=== PATIENT | male | born 1945 | race Caucasian/White ===

== ENCOUNTER 2022-06-03 07:04 | Day surgery (SDC) | payer OTHER ==
[~2022-06-03] VITALS: Ht 177.8 cm; Wt 104.3 kg
[2022-06-03] VITALS (8 sets, daily range): BP systolic 120–148; BP diastolic 60–76
[2022-06-03] MEDS ORDERED: normal saline 1,000 ML IV SCH (07:30)
[2022-06-03] MEDS ORDERED: LORazepam 0.5 MG tablet PO PRN (07:30)
[2022-06-03] MEDS ORDERED: diphenhydrAMINE 25mg capsule PO PRN (07:30)
[2022-06-03] MEDS ORDERED: ATOR40TA71 PO (07:34)
[2022-06-03] MEDS ORDERED: METF-438 PO (07:34)
[2022-06-03] MEDS ORDERED: LISI2.5T14 PO (07:34)
[2022-06-03] MEDS ORDERED: ATEN50TA2 PO (07:34)
[2022-06-03] MEDS ORDERED: LEVO50TA8 PO (07:34)
[2022-06-03] MEDS ORDERED: FLO0.4C PO (07:35)
[2022-06-03] MEDS ORDERED: CLOP75TA34 PO (07:38)
[2022-06-03] MEDS ORDERED: nitroGLYCERIN-Tridil 50MG/D5W 250 ML IV ONE (09:19)
[2022-06-03] MEDS ORDERED: verapamil 2.5 mg/ml inj IV ONE (09:20)
[2022-06-03] MEDS ORDERED: midazolam 1 mg/ML 2ml injection ONE (09:20)
[2022-06-03] MEDS ORDERED: heparin 1,000unit/ml 10ml vial 10 ML ONE (09:20)
[2022-06-03] MEDS ORDERED: LIDOcaine 1% (10mg/ml) 2ml vial ONE (09:20)
[2022-06-03] MEDS ORDERED: fentaNYL/PF 50MCG/1 ML 2ML syringe ONE (09:21)
[2022-06-03] MEDS ORDERED: iohexol 350MG/ML 100ml bottle IV ONE (09:21)
[2022-06-03] MEDS ORDERED: HYDROcodone/acetaminophen 10/325mg tab PO PRN (10:45)
[2022-06-03] MEDS ORDERED: HYDROcodone/acetaminophen 5mg/325mg tablet PO PRN (10:45)
== END 2022-06-03 12:25 | disposition home or self-care (01) ==
LOC: SSTAY O 07:04
PROVIDERS: ATTEND Student in an Organized Health Care Education/Training Program
DX: R94.39 Abnormal result of other cardiovascular function study (principal); R07.89 Other chest pain; E78.5 Hyperlipidemia, unspecified; E11.9 Type 2 diabetes mellitus without complications; I10 Essential (primary) hypertension; I25.10 Atherosclerotic heart disease of native coronary artery without angina pectoris; I25.2 Old myocardial infarction; Z79.899 Other long term (current) drug therapy; Z79.84 Long term (current) use of oral hypoglycemic drugs; Z85.828 Personal history of other malignant neoplasm of skin
CPT/HCPCS: 82948; 93005; 93458; 99152; A6258; C1769; C1894; J1644; J2250; J3010; J3490; J7030; Q0163; Q9967; A6402

== ENCOUNTER 2025-01-02 06:57 | Day surgery (SDC) | payer MEDICARE, OTHER ==
[~2025-01-02] VITALS: Ht 177.8 cm; Wt 95.3 kg
[~2025-01-02 06:57] MED LIST: ATOR40TA71 PO; CLOP75TA34 PO; EMPA10TA PO; GABA-530 PO; INDLA60C PO; LEVO50TA8 PO; LISI2.5T14 PO; METF-438 PO; SEMA2PEN SQ; TAMS-55 PO; ringers solution, lacted 1,000 ML IV SCH
[2025-01-02 07:12] VITALS: BP 146/75; PULSE 78; RESP 15; RESP 16; TEMP 97.2; O2SAT 96
[2025-01-02] MEDS ORDERED: midazolam 1 mg/ML 2ml injection ONE (10:02)
[2025-01-02] MEDS ORDERED: fentaNYL/PF 50MCG/1 ML 2ML syringe ONE (10:02)
[2025-01-02] MEDS ORDERED: dexmedetomidine 200mcg/2ml inj. IV ONE (10:13)
[2025-01-02] MEDS ORDERED: propofol inj 20 ML IV ONE (10:33)
[2025-01-02 11:01] VITALS: BP 98/60; PULSE 69; RESP 16; O2SAT 99
[2025-01-02 11:10] VITALS: BP 96/60; PULSE 62; RESP 13; O2SAT 97
[2025-01-02 11:20] VITALS: BP 101/62; PULSE 66; RESP 18; O2SAT 98
[2025-01-02 11:30] VITALS: BP 115/65; PULSE 58; RESP 18; O2SAT 97
[2025-01-02 11:41] VITALS: BP 105/65; PULSE 62; RESP 13; O2SAT 97
== END 2025-01-02 11:41 | disposition home or self-care (01) ==
LOC: GI LAB 06:57
PROVIDERS: ATTEND Internal Medicine Gastroenterology
DX: R19.5 Other fecal abnormalities (principal); K57.30 Diverticulosis of large intestine without perforation or abscess without bleeding; K63.5 Polyp of colon; K64.8 Other hemorrhoids; D12.2 Benign neoplasm of ascending colon; D12.4 Benign neoplasm of descending colon; D12.5 Benign neoplasm of sigmoid colon; I10 Essential (primary) hypertension; E11.42 Type 2 diabetes mellitus with diabetic polyneuropathy; E03.9 Hypothyroidism, unspecified; G47.33 Obstructive sleep apnea (adult) (pediatric); Z79.01 Long term (current) use of anticoagulants; Z79.02 Long term (current) use of antithrombotics/antiplatelets; Z79.84 Long term (current) use of oral hypoglycemic drugs; Z79.890 Hormone replacement therapy; Z79.899 Other long term (current) drug therapy; Z98.890 Other specified postprocedural states
CPT/HCPCS: 45385; 82948; J2250; J2704; J3010; J3490; J7120; Z7512; 88305; A4620; C1889